=== PATIENT | female | born 1975 | race Caucasian/White ===

== ENCOUNTER → 2016-09-09 | Outpatient (CLI) | payer MEDICARE ==
[~2016-09-09] MED LIST: ADVAIR 100-501 EACH INH; FERROUS SULFAT325 MG PO; KEFLEX500 MG PO; NORCO 5-325 TA1 EACH PO; PROAIR HFA8.5 GM INH; SYNTHROID25 MCG PO
== END ==
LOC: CT 15:00
DX: I63.9 Cerebral infarction, unspecified (principal); R10.9 Unspecified abdominal pain
CPT/HCPCS: J7050; Q9962

== ENCOUNTER → 2020-06-05 | Day surgery (SDC) | payer MEDICARE, OTHER ==
[~2020-06-05] MED LIST changes: +CLARITIN10 MG PO; +COLACE100 MG PO; +DEPO PROVERA IM; +FLONASE ALLER15.8 ML; +HYDROCODON-ACE1 EAC2 PO; +LEVOTHYROXINE50 MC1 PO; +PREDNISONE20 MG PO; +VIT D PO
== END | disposition home or self-care (01) ==
LOC: OR 08:27
DX: R13.14 Dysphagia, pharyngoesophageal phase (principal); E07.9 Disorder of thyroid, unspecified; J44.9 Chronic obstructive pulmonary disease, unspecified; F17.210 Nicotine dependence, cigarettes, uncomplicated; Z85.819 Personal history of malignant neoplasm of unspecified site of lip, oral cavity, and pharynx; Z88.6 Allergy status to analgesic agent; Z88.8 Allergy status to other drugs, medicaments and biological substances; Z79.899 Other long term (current) drug therapy
CPT/HCPCS: 84703; J2704; J3010; J7040

== ENCOUNTER → 2020-06-28 | Outpatient (CLI) | payer MEDICARE, OTHER | LOC: RAD 06-20 08:00 | DX: R13.14 Dysphagia, pharyngoesophageal phase (principal); K21.9 Gastro-esophageal reflux disease without esophagitis | CPT/HCPCS: 74220 ==

== ENCOUNTER → 2020-08-22 | Day surgery (SDC) | payer MEDICARE, OTHER | END | disposition home or self-care (01) | LOC: OR 10:10 | DX: Z12.11 Encounter for screening for malignant neoplasm of colon (principal); D12.3 Benign neoplasm of transverse colon; K64.1 Second degree hemorrhoids; K21.9 Gastro-esophageal reflux disease without esophagitis; F17.210 Nicotine dependence, cigarettes, uncomplicated; E03.9 Hypothyroidism, unspecified; Z85.819 Personal history of malignant neoplasm of unspecified site of lip, oral cavity, and pharynx; Z80.0 Family history of malignant neoplasm of digestive organs; Z88.6 Allergy status to analgesic agent; Z79.891 Long term (current) use of opiate analgesic; Z79.899 Other long term (current) drug therapy; Z20.822 Contact with and (suspected) exposure to COVID-19 | CPT/HCPCS: 84703; J2704; J7040; U0002 ==

== ENCOUNTER → 2021-04-24 | Outpatient (CLI) | payer OTHER | LOC: RAD 11:15 | DX: M25.50 Pain in unspecified joint (principal) | CPT/HCPCS: 73564 ==

== ENCOUNTER → 2021-06-24 | Outpatient (CLI) | payer OTHER | LOC: RAD 15:23 | DX: R10.9 Unspecified abdominal pain (principal); K59.00 Constipation, unspecified | CPT/HCPCS: 74018 ==